=== PATIENT | male | born 1965 | race Two or more races ===

== ENCOUNTER 2020-01-14 13:05 | Emergency (ER) | payer MEDICAID ==
[~2020-01-14] VITALS: Ht 172.7 cm; Wt 84.0 kg
[2020-01-14 13:23] VITALS: BP 153/110
== END 2020-01-14 17:14 | disposition home or self-care (01) ==
LOC: ED 16:50
DX: S66.911A Strain of unspecified muscle, fascia and tendon at wrist and hand level, right hand, initial encounter (principal); S66.912A Strain of unspecified muscle, fascia and tendon at wrist and hand level, left hand, initial encounter; S46.912A Strain of unspecified muscle, fascia and tendon at shoulder and upper arm level, left arm, initial encounter; V13.4XXA Pedal cycle driver injured in collision with car, pick-up truck or van in traffic accident, initial encounter; Y93.89 Activity, other specified; Y92.488 Other paved roadways as the place of occurrence of the external cause; Y99.8 Other external cause status
CPT/HCPCS: 99284

== ENCOUNTER 2020-06-07 00:08 | Emergency (ER) | payer MEDICAID ==
[~2020-06-07] VITALS: Ht 170.2 cm; Wt 83.1 kg
[~2020-06-07 00:08] MED LIST: MV-M1TAB3 PO
--- NOTE | 2020-06-07 00:16 | NUR ---
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
--- NOTE | 2020-06-07 00:25 | NUR ---
PT STATES HAVING OFF AND ON AB PAIN FOR 2 MONTHS, VOMITING ONLY TODAY. PT STATES 2/10 PAIN AT THIS TIME. PT STATES VOMITING TWICE PRIOR TO COMING IN, PT STATES HE DID TAKE ANY PRN MEDICATIONS BEFORE COMING IN. PT RESTING IN [facility], SAFETY MEASURES IN PLACE, PT ON MONITORS, AWAITING ERP EVAL
--- NOTE | 2020-06-07 00:30 | NUR ---
ASSUMED CARE OF PATIENT.
--- NOTE | 2020-06-07 00:42 | NUR ---
PT REPORTS EPIGASTRIC ABD PAIN WITH NAUSEA/VOMITING. AB HIGHTOWER IN ROOM. VS STABLE. NO ACUTE DISTRESS NOTED. CALL LIGHT IN PLACE. WILL CONTINUE TO MONITOR.
[2020-06-07] MEDS ORDERED: MAALOX/HYOSCYAMINE/LIDOCAINE 45 ML BTL ONE (00:59)
[2020-06-07] MEDS ORDERED: MAALOX/HYOSCYAMINE/LIDOCAINE 45 ML BTL PO ONE (01:00)
--- NOTE | 2020-06-07 01:08 | NUR ---
LABS DRAWN. PT RESTING IN ROOM. NO ACUTE DISTRESS NOTED. CALL LIGHT IN PLACE. WILL CONTINUE TO MONITOR.
[2020-06-07 01:10] LABS: BASOPHILS % (AUTO) 1 % (0-1); EOSINOPHILS % (AUTO) 5 % (1-7); LYMPHOCYTES % (AUTO) 18 % (22-44); MD NO; MEAN CORPUSCULAR HGB CONC 34.4 g/dL (33.2-36.2); MEAN PLATELET VOLUME 8.9 fL (7.4-10.4); MONOCYTES % (AUTO) 7 % (2-9); NEUTROPHILS % (AUTO) 69 % (42-75); PLATELET COUNT 161 x10^3/uL (130-400); RED CELL DISTRIBUTION WIDTH 13.6 % (9.4-14.8)
[2020-06-07 01:22] LABS: ALANINE AMINOTRANSFERASE 348 U/L (12-78); ALBUMIN 3.5 g/dL (3.4-5.0); ANION GAP 7 mmol/L (5-15); CHLORIDE 111 mmol/L (98-107); CREATININE 1.05 mg/dL (0.7-1.3)
[2020-06-07 01:24] LABS: ALKALINE PHOSPHATASE 124 U/L (45-117); BILIRUBIN,TOTAL 1.4 mg/dL (0.2-1.0); TOTAL PROTEIN 7.5 g/dL (6.4-8.2)
--- NOTE | 2020-06-07 01:41 | NUR ---
BEDSIDE REPORT GIVEN TO SRAVAN MOELLER
--- NOTE | 2020-06-07 01:44 | NUR ---
pt in bed with no signs or symptoms of acute distress noted respirations even and unlabored, pt reports pain rated 2/10. pt aware and agreeable with plan of care, denies need at this time. pt on bus driver/monitor with bed rails up bilaterally and call light within reach. urinal at bedside. pt pending ct.
[2020-06-07] MEDS ORDERED: OMNIPAQUE 350 MG/ML, 100ML BOTTLE ONE (01:58)
--- NOTE | 2020-06-07 02:56 | NUR ---
REPORT RECIEVED FROM SAJAN RN
[2020-06-07 03:08] LABS: MICROSCOPIC NOT IND
[2020-06-07 03:24] LABS: TROPONIN I < 0.015 ng/mL (0.000-0.045)
[2020-06-07 03:28] VITALS: BP 133/85
== END 2020-06-07 04:20 | disposition home or self-care (01) ==
LOC: ED 00:38
DX: K29.00 Acute gastritis without bleeding (principal); R10.13 Epigastric pain; R10.12 Left upper quadrant pain; R11.10 Vomiting, unspecified
CPT/HCPCS: 36415; 74177; 80053; 81003; 83690; 84484; 85025; 93005; 99285; Q9967